=== PATIENT | female | born 1985 | race Caucasian/White ===

== ENCOUNTER 2023-02-11 07:05 | Outpatient (CLI) | payer BC | END 2023-02-11 07:06 | disposition home or self-care (01) | LOC: BICULT 07:05 | PROVIDERS: ATTEND Student in an Organized Health Care Education/Training Program | DX: R10.31 Right lower quadrant pain (principal); R93.5 Abnormal findings on diagnostic imaging of other abdominal regions, including retroperitoneum | CPT/HCPCS: 76705 ==

== ENCOUNTER 2023-04-18 08:06 | Outpatient (CLI) | payer BC | END 2023-04-18 08:07 | disposition home or self-care (01) | LOC: CT 08:06 | PROVIDERS: ATTEND Family Medicine | DX: R19.09 Other intra-abdominal and pelvic swelling, mass and lump (principal); R93.3 Abnormal findings on diagnostic imaging of other parts of digestive tract | CPT/HCPCS: 72194 ==